=== PATIENT | female | born 1970 | race African-American/Black ===

== ENCOUNTER 2023-03-16 22:59 | Emergency (ER) | payer OTHER ==
[2023-03-16 23:08] VITALS: TEMP 98.7
[2023-03-17 00:46] LABS: Basophils % (A) 0 %; Eosinophils # (A) 0.4 k/uL (0-0.7); Eosinophils % (A) 4 %; HCT 41.9 % (34.0-46.0); HGB 14.5 gm/dL (11.4-16.0); Lymphocytes # (A) 2.3 k/uL (1.0-4.8); Lymphocytes % (A) 21 %; MCH 31.5 pg (25.0-35.0); MCHC 34.7 g/dL (31.0-37.0); MCV 90.8 fL (80.0-100.0); Mean Platelet Volume 8.1; Monocytes # (A) 0.4 k/uL (0-1.0); Monocytes % (A) 4 %; Neutrophils % (A) 71 %; Platelet Count 337 k/uL (150-450); RBC 4.61 m/uL (3.80-5.40); RDW 14.1 % (11.5-15.5); WBC 11.3 k/uL (3.8-10.6)
[2023-03-17 00:55] LABS: INR 0.9 (<1.2); Partial Thromboplastin Time 26.7 sec (22.0-30.0); Prothrombin Time 9.9 sec (9.0-12.0)
--- NOTE | 2023-03-17 01:16 | ED ---
Chest Pain HPI - General Chief Complaint: Chest Pain Stated Complaint: Chest Pain Time Seen by Provider: 03/16/23 23:44 Source: patient, EMS, RN notes reviewed Mode of arrival: EMS Limitations: no limitations - History of Present Illness Initial Comments: Patient is a 53-year-old -[place] female presenting to the emergency room via EMS from [facility] with complaints of a stabbing like chest pain that has been chest pain is a sharp intermittent stabbing like sensation midsternum which is not present on exam. She denies any aggravating or alleviating factors. She does report she is concerned regarding not taking her sleep medication of Ambien and specifically requested a dose of Ativan. She denies any other complaints or concerns at this time. She does report taking her trazodone prior to coming in is drowsy upon exam with poor eye contact. She denies any chest pain, abdominal pain, nausea, vomiting, headache, dizziness, fevers or chills. She has a past medical history significant for hypertension, polysubstance abuse, PTSD and schizoaffective disorder. Review of Systems ROS Statement: Those systems with pertinent positive or pertinent negative responses have been documented in the HPI. ROS Other: All systems not noted in ROS Statement are negative. Past Medical History Past Medical History: Hypertension Additional Past Medical History / Comment(s): chronic pain History of Any Multi-Drug Resistant Organisms: None Reported Past Surgical History: Unable to Obtain Past Anesthesia/Blood Transfusion Reactions: No Reported Reaction Past Psychological History: PTSD, Schizoaffective Disorder Smoking Status: Current every day smoker Past Alcohol Use History: None Reported Past Drug Use History: Marijuana General Exam - General Exam Comments Initial Comments: GENERAL: No acute distress, obese. Drowsy but easily arousable. Appears slightly intoxicated. HEENT: Normocephalic, atraumatic. Pupils equal, round, reactive to light. Moist mucous membranes. LUNGS: No respiratory distress. Clear to auscultation, no adventitious sounds, no use of accessory muscles. HEART: Bradycardic rate and rhythm without murmur, rub, or gallop. ABDOMEN: Normal bowel sounds. Soft, non-tender, non-distended. BACK: Normal inspection. EXTREMITIES: No edema. No tenderness. Moves all extremities. NEUROLOGIC: Alert & oriented x 3. CN II-XII grossly intact. PSYCHIATRIC: Normal affect and behavior. DERMATOLOGIC: Skin intact, without rashes or lesions noted. Limitations: no limitations Course Vital Signs 03/16/23 03/17/23 23:02 03:17 Temperature 98.7 F Pulse Rate 52 L 54 L Respiratory 22 20 Rate Blood Pressure 146/106 134/88 O2 Sat by Pulse 98 98 Oximetry Chest Pain MDM - MDM Was pt. sent in by a medical professional or institution (, PA, CELLULAR BIOLOGIST, urgent care, hospital, or detention...) When possible be specific @ -yes, patient sent in from [facility] Did you speak to anyone other than the patient for history (EMS, parent, family, police, friend...)? What history was obtained from this source @ -No Did you review nursing and triage notes (agree or disagree)? Why? @ -I reviewed and agree with nursing and triage notes except patient has no chest pain or associated symptoms on exam Were old charts reviewed (outside hosp., previous admission, EMS record, old EKG, old radiological studies, urgent care reports/EKG's, detention records)? Report findings @ -No old charts were reviewed Differential Diagnosis (chest pain, altered mental status, abdominal pain women, abdominal pain men, vaginal bleeding, weakness, fever, dyspnea, syncope, headache, dizziness, GI bleed, back pain, seizure, CVA, palpatations, mental health, musculoskeletal)? @ -Differential Chest Pain: Stable Angina, Unstable Angina, STEMI, NSTEMI Aortic Dissection, Pneumothorax, Musculoskeletal, Esophageal Spasm GERD, Cholecystitis, Pancreatitis, Zoster, this is not meant to be an all-inclusive list. EKG interpreted by me (3pts min.). @ -Sinus bradycardia, ventricular rate 53 bpm, SC interval 191 ms, QRS duration 95 ms, QT/QTC 4 and 86/460 ms, PRT axie 15, 48, 55. X-rays interpreted by me (1pt min.). @ -Chest x-ray two-view small bilateral pleural effusions no infiltrates or atelectasis. CT interpreted by me (1pt min.). @ -None done U/S interpreted by me (1pt. min.). @ -None done What testing was considered but not performed or refused? (CT, X-rays, U/S, labs)? Why? @ -None What meds were considered but not given or refused? Why? @ -Nitroglycerin, aspirin and pain medication considered but deferred due to atypical nature of chest pain with no chest pain present on exam. Did you discuss the management of the patient with other professionals (professionals i.e. , PA, CELLULAR BIOLOGIST, lab, RT, psych nurse, social work associate, pattern filer, teacher, credit compliance officer, nurse case management)? Give summary @ -No Was smoking cessation discussed for >3mins.? @ -No Was critical care preformed (if so, how long)? @ -No Were there social determinants of health that impacted care today? How? (Homelessness, low income, unemployed, alcoholism, drug addiction, tra nsportation, low edu. Level, literacy, decrease access to med. care, long term, rehab)? @ -No Was there de-escalation of care discussed even if they declined (Discuss DNR or withdrawal of care, Hospice)? DNR status @ -No What co-morbidities impacted this encounter? (DM, HTN, Smoking, COPD, CAD, Cancer, CVA, ARF, Chemo, Hep., AIDS, mental health diagnosis, sleep apnea, morbid obesity)? @ -None Was patient admitted / discharged? Hospital course, mention meds given and route, prescriptions, significant lab abnormalities, going to OR and other pertinent info. @ -Patient is a 53-year-old -[place] female presenting to the emergency room via EMS from [facility] with complaints of a stabbing like chest pain that has been chest pain is a sharp intermittent stabbing like sensation midsternum which is not present on exam. She denies any aggravating or alleviat ing factors. She does report she is concerned regarding not taking her sleep medication of Ambien and specifically requested a dose of Ativan. She denies any other complaints or concerns at this time. She does report taking her trazodone prior to coming in is drowsy upon exam with poor eye contact. Will start workup for chest pain with CBC, CMP, magnesium, troponin EKG and chest x-ray will defer medication administration at this time in the absence of pain at this time. No indication for benzodiazepine administration. Chest x-ray demonstrates bilateral small pleural effusions there is no comp arison available however these are likely chronic in nature no other acute cardiopulmonary process. EKG demonstrates sinus bradycardia. Laboratory studies show elevated WBC at 11.3 with neutrophils 8.0. Coags and d-dimer normal, troponin negative, magnesium and potassium normal, liver enzymes normal. Slightly dehydrated with BUN of 21 and creatinine 1.36, low carbon dioxide 21 no other abnormalities on CMP. Findings discussed patient patient continues to remain chest pain-free and resting comfortably while here in the emergency room. Chest pain is atypical in nature and not present on exam. No indication for further diagnostic imaging or laboratory studies at this time. Findings discussed with patient at length. Questions and concerns answered. Return parameters to the emergency room discussed. Will discharge in stable condition home to return to [facility] for polysubstance abuse advising follow-up with her primary care provider for atypical chest pain. Undiagnosed new problem with uncertain prognosis? @ -No Drug Therapy requiring intensive monitoring for toxicity (Heparin, Nitro, Insulin, Cardizem)? @ -No Were any procedures done? @ -No Diagnosis/symptom? @ -Atypical chest Acute, or Chronic, or Acute on Chronic? @ -Acute Uncomplicated (without systemic symptoms) or Complicated (systemic symptoms)? @ -Uncomplicated Side effects of treatment? @ -No Exacerbation, Progression, or Severe Exacerbation? @ -No Poses a threat to life or bodily function? How? (Chest pain, [place], [place], pneumonia, PE, COPD, DKA, ARF, appy, cholecystitis, CVA, Diverticulitis, Homicidal, Suicidal, threat to staff... and all critical care pts) @ -No Case discussed with Dr. Chavez. Disposition Clinical Impression: Atypical chest pain Disposition: HOME SELF-CARE Condition: Stable Instructions (If sedation given, give patient instructions): Chest Pain (ED), Anxiety (ED) Additional Instructions: Please utilize Tylenol or Motrin [id number] as needed for pain. Please follow-up with her primary care provider. Please return to the Emergency Department if symptoms worsen or any other concerns. Is patient prescribed a controlled substance at d/c from ED?: No Referrals: None,Stated [Primary Care Provider] - 1-2 days Time of Disposition: 02:18
--- NOTE | 2023-03-17 01:18 | XR ---
EXAM: XR Chest, 2 Views CLINICAL HISTORY: ITS.REASON XR Reason: Chest Pain TECHNIQUE: Frontal and lateral views of the chest. COMPARISON: No relevant prior studies available. FINDINGS: Lungs: Unremarkable. No consolidation. Pleural space: Small pleural effusions. No pneumothorax. Heart: Unremarkable. No cardiomegaly or pulmonary vascular congestion. Bones/joints: No acute fracture. No dislocation. IMPRESSION: Small pleural effusions.
[2023-03-17 01:19] LABS: ALT 18 U/L (4-34); AST 24 U/L (14-36); African American GFR (CKD) 52 (>60 ml/min/1.73 sqM); Albumin 4.1 g/dL (3.5-5.0); Alkaline Phosphatase 98 U/L (38-126); Anion Gap 10 mmol/L; Blood Urea Nitrogen 21 mg/dL (7-17); Calcium 9.5 mg/dL (8.4-10.2); Carbon Dioxide 21 mmol/L (22-30); Chloride 107 mmol/L (98-107); Glucose 87 mg/dL (74-99); Magnesium 2.3 mg/dL (1.6-2.3); Non-African American GFR(CKD) 45 (>60 ml/min/1.73 sqM); Potassium 3.7 mmol/L (3.5-5.1); Sodium 138 mmol/L (137-145); Total Bilirubin 0.5 mg/dL (0.2-1.3); Total Protein 7.7 g/dL (6.3-8.2)
[2023-03-17 03:20] VITALS: BP 134/88; PULSE 54; RESP 20
== END 2023-03-17 03:48 | disposition home or self-care (01) ==
LOC: EC 22:59
DX: R07.89 Other chest pain (principal); J90 Pleural effusion, not elsewhere classified; I10 Essential (primary) hypertension; F17.200 Nicotine dependence, unspecified, uncomplicated; F12.90 Cannabis use, unspecified, uncomplicated
CPT/HCPCS: 36415; 71046; 80053; 83735; 84484; 85025; 85379; 85610; 85730; 93005; 99285